=== PATIENT | male | born 1960 | race Hispanic/Latino ===

== ENCOUNTER → 2019-04-17 | Day surgery (SDC) | payer SELFPAY ==
[~2019-04-17] MED LIST: FENTANYL CITRATE/PF 100MCG/2 ML INJ ONE; LISINOPRIL10 MG PO; MIDAZOLAM HCL 5MG/ML 2ML VIAL ONE; PROPOFOL IV EMULSION 10 MG/ML 50 ML VIAL ONE
[2019-04-17 12:45] VITALS: BP 129/89
--- NOTE | 2019-04-17 20:39 | Operative Report ---
DATE OF PROCEDURE: 04/17/2019 SURGEON: Collin Paulson MD PROCEDURES: Colonoscopy and polypectomy. INDICATIONS FOR COLONOSCOPY: Colorectal cancer screening. MEDICATIONS: The patient was done under MAC, please see anesthesiologist's note. PROCEDURE IN DETAIL: With the patient in left lateral decubitus position, flexible fiberoptic Olympus colonoscope was inserted into the rectum with ease and advanced all the way to the cecum. It was then withdrawn slowly. Mucosa overlying the cecum and ascending colon appeared to be within normal limits. One polyp was snared from the distal transverse colon. The descending appeared to be within normal limits. Two polyps were snared and four polyps were removed per cold and hot biopsy forceps in the sigmoid colon. Two polyps were removed per hot biopsy forceps in the rectum. The scope was then retroflexed into the distal rectum and small internal hemorrhoids were noted, none of which was actively bleeding. The scope was then straightened out, it was subsequently withdrawn. The patient tolerated the procedure well. IMPRESSION: 1. Transverse colon polyp snared. 2. Sigmoid colon polyps x6, two snared and four removed per colon hot biopsy forceps. 3. Rectal polyps x2, hot biopsied. 4. Internal hemorrhoids, none actively bleeding. PLAN: Follow up histology. Initiate high-fiber, low-fat diet. Initiate high-fiber supplement. The patient might benefit from a followup colonoscopy in 3 to 5 years. Collin Paulson MD [facility] [place] /[id number] cc: Collin Paulson MD
== END | disposition home or self-care (01) ==
LOC: OR 09:20
PROVIDERS: ATTEND Internal Medicine Gastroenterology
DX: Z12.11 Encounter for screening for malignant neoplasm of colon (principal); D12.3 Benign neoplasm of transverse colon; K62.1 Rectal polyp; K64.8 Other hemorrhoids; I10 Essential (primary) hypertension
CPT/HCPCS: 45384; 45385; J2250; J2704; 45380

== ENCOUNTER 2024-07-11 22:19 | Emergency (ER) | payer MEDICARE ==
[~2024-07-11] VITALS: Ht 167.6 cm; Wt 88.0 kg
[~2024-07-11 22:19] MED LIST changes: -FENTANYL CITRATE/PF 100MCG/2 ML INJ ONE; -MIDAZOLAM HCL 5MG/ML 2ML VIAL ONE; -PROPOFOL IV EMULSION 10 MG/ML 50 ML VIAL ONE
[2024-07-11 22:35] VITALS: PULSE 63; RESP 18; TEMP 98.6
[2024-07-11] MEDS: TETANUS/DIPHTHERIA TOX ADULT 0.5 ML SYR IM ONE (23:50)
[2024-07-11] MEDS: DIPHTH,PERTUSS(ACELL),TET VAC 0.5 ML SYRINGE IM ONE (23:50)
[2024-07-12] MEDS: BACITRACIN ZINC 0.9GM TP ONE (00:03)
[2024-07-12 00:08] VITALS: BP 138/76; PULSE 63; RESP 18; TEMP 98.6; O2SAT 9
== END 2024-07-12 00:08 | disposition home or self-care (01) ==
LOC: FSED 22:24
DX: S80.212A Abrasion, left knee, initial encounter (principal); S90.415A Abrasion, left lesser toe(s), initial encounter; S90.414A Abrasion, right lesser toe(s), initial encounter; V43.62XA Car passenger injured in collision with other type car in traffic accident, initial encounter; Y92.488 Other paved roadways as the place of occurrence of the external cause
CPT/HCPCS: 70450; 71046; 90471; 90714; 99283